=== PATIENT | female | born 1975 | race Caucasian/White ===

== ENCOUNTER → 2016-12-17 | Outpatient (CLI) | payer BC ==
[2016-12-17 07:43] LABS: Basophils # (A) 0.1 k/uL (0-0.2); Basophils % (A) 1 %; CH 30.2; Eosinophils # (A) 0.3 k/uL (0-0.7); Eosinophils % (A) 4 %; HCT 46.6 % (34.0-46.0); HDW 2.54; HGB 15.2 gm/dL (11.4-16.0); Luc # (Auto) 0.22; Luc % (Auto) 3; Lymphocytes # (A) 2.2 k/uL (1.0-4.8); Lymphocytes % (A) 26 %; MCH 29.1 pg (25.0-35.0); MCHC 32.6 g/dL (31.0-37.0); MCV 89.2 fL (80.0-100.0); Mean Platelet Volume 7.4; Monocytes # (A) 0.3 k/uL (0-1.0); Monocytes % (A) 3 %; Neutrophils # (A) 5.5 k/uL (1.3-7.7); Neutrophils % (A) 64 %; RBC 5.22 m/uL (3.80-5.40); RDW 12.9 % (11.5-15.5); WBC 8.5 k/uL (3.8-10.6); WBC (Perox) 8.33
[2016-12-17 07:52] LABS: ALT 27 U/L (9-52); AST 13 U/L (14-36); Alkaline Phosphatase 66 U/L (38-126); Anion Gap 11 mmol/L; Blood Urea Nitrogen 12 mg/dL (7-17); Carbon Dioxide 25 mmol/L (22-30); Chloride 107 mmol/L (98-107); Cholesterol 154 mg/dL (<200); Glucose 111 mg/dL (74-99); HDL Cholesterol 37 mg/dL (40-60); Non-African American GFR(MDRD) >60 (>60 ml/min/1.73 sqM); Potassium 4.1 mmol/L (3.5-5.1); Sodium 143 mmol/L (137-145); Total Bilirubin 0.9 mg/dL (0.2-1.3); Total Protein 7.2 g/dL (6.3-8.2); Triglycerides 86 mg/dL (<150)
== END | disposition home or self-care (01) ==
LOC: LABWHC1 07:18
PROVIDERS: ATTEND Family Medicine
DX: E03.8 Other specified hypothyroidism (principal); E66.9 Obesity, unspecified; Z68.30 Body mass index [BMI] 30.0-30.9, adult; Z77.21 Contact with and (suspected) exposure to potentially hazardous body fluids
CPT/HCPCS: 36415; 80053; 80061; 84439; 84443; 85025; 87535

== ENCOUNTER → 2016-12-31 | Outpatient (CLI) | payer BC ==
--- NOTE | 2017-01-01 12:44 | US ---
EXAMINATION TYPE: US thyroid st tissue head/neck DATE OF EXAM: 12/31/2016 4:10 PM COMPARISON: NONE CLINICAL HISTORY: E03.8 Hypothyroidism,E04.1 Thyroid nodule. GLAND SIZE: Right Lobe: 4.6 x 1.0 x 1.1 cm Left Lobe: 4.4 x 1.7 x 1.2 cm Isthmus Thickness: 0.4 cm NODULES RIGHT: # of nodules measured on right: 1 1. 1.4 X 1.3 x 1.3 cm isoechoic solid nodule at the lower pole with well-defined margins. This nod ule is wider than tall and shows intranodular vascularity. Prior size: no previous LEFT: # of nodules measured on left: 0 ISTHMUS: # of nodules measured in the isthmus: 0 Bilateral neck scanned, no evidence of lymphadenopathy. Diffusely heterogeneous bilateral thyroid tis tim. Nodule on the right is probably in the thyroid, but this is difficult to say with 100% certaint y. IMPRESSION: Diffuse glandular heterogeneity. Solid nonspecific exophytic nodule likely arising from the lower [place]elaide e of the right thyroid lobe. The need to Biopsy should be made on a clinical basis.
== END | disposition home or self-care (01) ==
LOC: RADUSWWP 15:45
PROVIDERS: ATTEND Family Medicine
DX: E04.1 Nontoxic single thyroid nodule (principal); E07.89 Other specified disorders of thyroid; E03.8 Other specified hypothyroidism; E06.3 Autoimmune thyroiditis
CPT/HCPCS: 76536

== ENCOUNTER → 2017-03-06 | Outpatient (CLI) | payer BC | END | disposition home or self-care (01) | LOC: LABWHC1 07:43 | PROVIDERS: ATTEND Internal Medicine Endocrinology, Diabetes & Metabolism | DX: E04.1 Nontoxic single thyroid nodule (principal) | CPT/HCPCS: 36415; 84439; 84443 ==

== ENCOUNTER → 2018-02-16 | Outpatient (CLI) | payer BC | LOC: LABWHC1 16:29 | PROVIDERS: ATTEND Internal Medicine Endocrinology, Diabetes & Metabolism | DX: E04.1 Nontoxic single thyroid nodule (principal) | CPT/HCPCS: 36415; 84443 ==

== ENCOUNTER → 2018-05-22 | Outpatient (CLI) | payer BC ==
--- NOTE | 2018-05-26 12:20 | MM ---
Reason for exam: screening (asymptomatic). Last mammogram was performed 2 years and 1 month ago. History: Family history of breast cancer in mother at age 48. Benign left breast aspiration of the left breast, August 26, 2012. Benign left breast aspiration additional of the left breast, August 26, 2012. Benign right US cyst aspiration ea add of the right breast, February 06, 2011. Benign right US cyst aspiration of the right breast, February 06, 2011. Took hormonal contraceptives for 10 years beginning at age 24. Physical Findings: A clinical breast exam by your physician is recommended on an annual basis and results should be correlated with mammographic findings. MG 3D Screening Mammo W/Cad Bilateral CC and MLO view(s) were taken. Prior study comparison: April 10, 2016, bilateral MG 3d screening mammo w/cad. March 17, 2015, bilateral MG diagnostic mammo w CAD [facility]. The breast tissue is heterogeneously dense. This may lower the sensitivity of mammography. Finding #1: There is a higher probability of malignancy 11 mm equal density (isodense), round mass located 10 cm from the nipple in the upper outer quadrant, middle position. Finding #2: There are diffuse/scattered calcifications in both breasts. There are some increased groups from 2015. New finding since April 10, 2016 and March 17, 2015. ASSESSMENT: Incomplete: need additional imaging evaluation, BI-RAD 0 RECOMMENDATION: Special view mammogram of both breasts. [facility] will attempt to contact patient to return for supplemental views.
== END | disposition home or self-care (01) ==
LOC: RADMAMWWP 06:57
PROVIDERS: ATTEND Obstetrics & Gynecology
DX: Z12.31 Encounter for screening mammogram for malignant neoplasm of breast (principal); Z80.3 Family history of malignant neoplasm of breast
CPT/HCPCS: 77063; 77067

== ENCOUNTER → 2018-05-28 | Outpatient (CLI) | payer BC ==
--- NOTE | 2018-06-01 08:51 | MM ---
Reason for exam: additional evaluation requested from abnormal screening. Last mammogram was performed less than 1 month ago. History: Family history of breast cancer in mother at age 48. Benign left breast aspiration of the left breast, August 26, 2012. Benign left breast aspiration additional of the left breast, August 26, 2012. Benign right US cyst aspiration ea add of the right breast, February 06, 2011. Benign right US cyst aspiration of the right breast, February 06, 2011. Took hormonal contraceptives for 10 years beginning at age 24. Physical Findings: Nurse did not find any significant physical abnormalities on exam. MG 3D Work Up W/Cad AM[facility] Bilateral LM view(s) were taken. Spot compression CC and spot compression MLO view(s) were taken of the right breast. CC with magnification and LM with magnification view(s) were taken of the left breast. Prior study comparison: May 22, 2018, bilateral MG 3d screening mammo w/cad. April 10, 2016, bilateral MG 3d screening mammo w/cad. Finding: There are typically benign vascular calcifications in the left breast. No significant changes in finding. These results were verbally communicated with the patient and result sheet given to the patient on 05/28/18. ASSESSMENT: Probably benign, BI-RAD 3 RECOMMENDATION: Follow-up diagnostic mammogram of the left breast in 6 months.
--- NOTE | 2018-06-01 08:54 | USB ---
Reason for exam: additional evaluation requested from abnormal screening. History: Family history of breast cancer in mother at age 48. Benign left breast aspiration of the left breast, August 26, 2012. Benign left breast aspiration additional of the left breast, August 26, 2012. Benign right US cyst aspiration ea add of the right breast, February 06, 2011. Benign right US cyst aspiration of the right breast, February 06, 2011. Took hormonal contraceptives for 10 years beginning at age 24. US Breast Workup Limited RT Right limited breast ultrasound including focal area of concern, retroareolar and axilla demonstrates four oval, cystic lesions measuring 1.0 x 0.9 x 1.1cm at 9 o'clock, 0.6 x 0.5 x 0.6cm at 9 o'clock, 1.7 x 0.7 x 1.3cm at 10 o'clock and 0.8 x 0.6 x 1.0cm at 10 o'clock. These results were verbally communicated with the patient and result sheet given to the patient on 05/28/18. ASSESSMENT: Benign, BI-RAD 2 RECOMMENDATION: Follow-up diagnostic mammogram in 6 months. (left)
== END | disposition home or self-care (01) ==
LOC: RADMAMWWP 14:37
PROVIDERS: ATTEND Obstetrics & Gynecology
DX: R92.8 Other abnormal and inconclusive findings on diagnostic imaging of breast (principal)
CPT/HCPCS: 77062; 77066

== ENCOUNTER → 2018-08-06 | Outpatient (CLI) | payer BC ==
--- NOTE | 2018-08-06 17:21 | US ---
EXAMINATION TYPE: US thyroid st tissue head/neck DATE OF EXAM: 08/06/2018 COMPARISON: US 12/31/2016 CLINICAL HISTORY: E04.1 Nontoxic single thyroid nodule. GLAND SIZE: Right Lobe: 5.1 x 1.1 x 1.2 cm Overall Parenchyma: heterogenous Left Lobe: 5.1 x 1.4 x 1.2 cm Overall Parenchyma: heterogeneous Isthmus Thickness: 0.3 cm NODULES RIGHT: # of nodules measured on right: 1 1. 1.7 X 1.4 x 1.6 cm echogenic solid nodule at the lower pole with well-defined margins; . This n odule is wider than tall and shows intranodular vascularity. Prior size: 1.4 x 1.3 x 1.3 cm LEFT: # of nodules measured on left: 0 ISTHMUS: # of nodules measured in the isthmus: 0 Bilateral diffusely heterogeneous thyroid lobes. Bilateral neck scanned, no evidence of lymphadenopat hy. IMPRESSION: 1. Right lobe thyroid nodule has increased in size from the comparison study 12/31/2016.
== END | disposition home or self-care (01) ==
LOC: RADUSWWP 15:55
PROVIDERS: ATTEND Internal Medicine Endocrinology, Diabetes & Metabolism
DX: E04.1 Nontoxic single thyroid nodule (principal)
CPT/HCPCS: 76536

== ENCOUNTER → 2018-08-12 | Outpatient (CLI) | payer BC ==
[2018-08-12 08:05] LABS: HCT 43.9 % (34.0-46.0); HGB 14.9 gm/dL (11.4-16.0); MCV 88.3 fL (80.0-100.0); Mean Platelet Volume 6.9; Platelet Count 398 k/uL (150-450); RBC 4.97 m/uL (3.80-5.40); RDW 13.1 % (11.5-15.5); WBC 8.9 k/uL (3.8-10.6)
[2018-08-12 08:24] LABS: Appearance,Urine Cloudy (Clear); Bacteria,Urine Rare /hpf; Bilirubin,Urine Negative (Negative); Blood,Urine Negative (Negative); Color,Urine Yellow; Glucose,Urine (UA) Negative (Negative); Ketones,Urine Negative (Negative); Leukocyte Esterase,Urine Large (Negative); Mucus,Urine Many /hpf; Nitrite,Urine Negative (Negative); Protein,Urine Trace (Negative); RBC,Urine 1 /hpf (0-5); Specific Gravity,Urine 1.025 (1.001-1.035); Squamous Epithelial Cell,Urine 14 /hpf (0-4); WBC,Urine 9 /hpf (0-5)
[2018-08-12 17:58] LABS: Albumin 4.1 g/dL (3.80-4.90); Albumin/Globulin Ratio 1.71 (1.20-2.10); Anion Gap 8.5 mmol/L (4.00-12.00); Calcium 9.1 mg/dL (8.7-10.3); Carbon Dioxide 23.5 mmol/L (21.6-31.8); Globulin 2.4 g/dL (2.1-3.7); LDL Cholesterol,Calculated 96.2 mg/dL (0.0-131.0); Potassium 4.4 mmol/L (3.5-5.5); Total Bilirubin 0.8 mg/dL (0.2-1.2); Total Protein 6.5 g/dL (6.2-8.2); VLDL Calculation 16.8 mg/dL (5.00-40.00)
[2018-08-12 18:07] LABS: T4, Free (Free Thyroxine) 1.4 ng/dL (0.80-1.80)
== END | disposition home or self-care (01) ==
LOC: LABWHC1 07:02
PROVIDERS: ATTEND Family Medicine
DX: Z00.00 Encounter for general adult medical examination without abnormal findings (principal); E06.3 Autoimmune thyroiditis
CPT/HCPCS: 36415; 80053; 80061; 81001; 84439; 84443; 84481; 85027

== ENCOUNTER → 2018-11-26 | Outpatient (CLI) | payer BC ==
--- NOTE | 2018-11-26 10:43 | MM ---
Reason for exam: follow-up at short interval from prior study. Last mammogram was performed 6 months ago. History: Family history of breast cancer in mother at age 48. Benign left breast aspiration of the left breast, August 26, 2012. Benign left breast aspiration additional of the left breast, August 26, 2012. Benign right US cyst aspiration ea add of the right breast, February 06, 2011. Benign right US cyst aspiration of the right breast, February 06, 2011. Took hormonal contraceptives for 10 years beginning at age 24. Physical Findings: Nurse did not find any significant physical abnormalities on exam. MG 3D Diag Mammo W/Cad LT CC, MLO, and XCCL view(s) were taken of the left breast. Prior study comparison: May 28, 2018, bilateral MG 3d work up w/cad AMARILIS. May 22, 2018, bilateral MG 3d screening mammo w/cad. The breast tissue is heterogeneously dense. This may lower the sensitivity of mammography. Lateral nodularity appears more defined from older prior. Punctate calcifications unchanged. A nodule measures 1.8cm and 1.3cm. A third nodule may be present. These results were verbally communicated with the patient and result sheet given to the patient on 11/26/18. ASSESSMENT: Incomplete: need additional imaging evaluation, BI-RAD 0 RECOMMENDATION: Ultrasound of the left breast. (lateral)
--- NOTE | 2018-11-26 10:57 | USB ---
Reason for exam: additional evaluation requested from abnormal screening. History: Family history of breast cancer in mother at age 48. Benign left breast aspiration of the left breast, August 26, 2012. Benign left breast aspiration additional of the left breast, August 26, 2012. Benign right US cyst aspiration ea add of the right breast, February 06, 2011. Benign right US cyst aspiration of the right breast, February 06, 2011. Took hormonal contraceptives for 10 years beginning at age 24. US Breast Limited LT Left limited breast ultrasound including focal area of concern, retroareolar and axilla demonstrates a 0.7 x 0.9 x 0.5cm oval, cystic cluster at 1 o'clock versus complex cyst for which a 6 month follow up is recommended, a 0.4 x 0.4 x 0.3cm oval, cystic lesion at 1 o'clock, a 0.4 x 0.5 x 0.3cm oval, cystic lesion at 1 o'clock, a 0.6 x 1.1 x 0.3cm oval, cystic lesion at 2 o'clock, a 1.0 x 0.5 x 0.5cm oval, cystic lesion at 2 o'clock, a 1.2 x 0.8 x 0.4cm oval, cystic lesion at 4 o'clock, a 1.1 x 0.8 x 0.7cm cystic lesion at 4 o'clock and duct ectasia at the posterior nipple. Scanned 12-6 o'clock. The 2 o'clock and 4 o'clock cysts may correspond to the mammographic findings. These results were verbally communicated with the patient and result sheet given to the patient on 11/26/18. ASSESSMENT: Probably benign, BI-RAD 3 RECOMMENDATION: Follow-up diagnostic mammogram of both breasts in 6 months. Ultrasound of the left breast in 6 months.
== END | disposition home or self-care (01) ==
LOC: RADMAMWWP 06:49
PROVIDERS: ATTEND Surgery
DX: R92.8 Other abnormal and inconclusive findings on diagnostic imaging of breast (principal)
CPT/HCPCS: 77061; 77065

== ENCOUNTER → 2019-05-18 | Outpatient (CLI) | payer BC ==
--- NOTE | 2019-05-18 11:52 | MM ---
Reason for exam: follow-up at short interval from prior study. Last mammogram was performed 6 months ago. History: Family history of breast cancer in mother at age 48. Benign left breast aspiration of the left breast, August 26, 2012. Benign left breast aspiration additional of the left breast, August 26, 2012. Benign right US cyst aspiration ea add of the right breast, February 06, 2011. Benign right US cyst aspiration of the right breast, February 06, 2011. Took hormonal contraceptives for 10 years beginning at age 24. Physical Findings: Nurse did not find any significant physical abnormalities on exam. MG 3D Diag Mammo W/Cad AMARILIS Bilateral CC and MLO view(s) were taken. Prior study comparison: November 26, 2018, left breast MG 3d diag mammo w/cad LT. May 28, 2018, bilateral MG 3d work up w/cad AMARILIS. The breast tissue is heterogeneously dense. This may lower the sensitivity of mammography. There are benign appearing round oval circumscribed bilateral masses waxing and waning over time most mammographically compatible with cysts. Benign appearing bilateral calcifications. These results were verbally communicated with the patient and result sheet given to the patient on 05/18/19. ASSESSMENT: Benign, BI-RAD 2 RECOMMENDATION: Routine screening mammogram of both breasts in 1 year.
--- NOTE | 2019-05-18 11:58 | USB ---
Reason for exam: follow-up at short interval from prior study. History: Family history of breast cancer in mother at age 48. Benign left breast aspiration of the left breast, August 26, 2012. Benign left breast aspiration additional of the left breast, August 26, 2012. Benign right US cyst aspiration ea add of the right breast, February 06, 2011. Benign right US cyst aspiration of the right breast, February 06, 2011. Took hormonal contraceptives for 10 years beginning at age 24. US Breast Limited LT Left limited breast ultrasound including focal area of concern, retroareolar and axilla demonstrates duct ectasia at 1 o'clock, a 0.5 x 0.4 x 0.3cm oval, lobular, complex cystic lesion at 1 o'clock appears as benign cyst, a 0.4 x 0.5 x 0.4cm oval, cystic lesion at 1 o'clock, appears as benign cyst, a 0.7 x 0.9 x 0.5cm oval, cystic cluster at 2 o'clock, appears as benign cyst, a 1.5 x 1.2 x 0.7cm oval, cystic larger of two lesions at 3 o'clock palpable, appears as benign cyst, ductal ectasia at 3 o'clock, a 0.6 x 0.6 x 0.5c, cystic lesion at 4 o'clock, a 0.4 x 0.4 x 0.3cm cystic lesion at 5 o'clock, ductal ectasia at the posterior nipple and a 1.1 x 0.7 x 0.5cm axilla node. These results were verbally communicated with the patient and result sheet given to the patient on 05/18/19. ASSESSMENT: Benign, BI-RAD 2 RECOMMENDATION: Aspiration of the left breast. (Aspiration could be considered for the painful palpable left cyst at 3 o'clock if the patient desires). Called with mammographic findings and has scheduled an appointment for the patient for 05/20/19 at 1:[address] Medina. PRELIMINARY REPORT CALLED AND FAXED TO DR. MEDINA ON 05/18/19. Routine screening mammogram of both breasts in 1 year.
== END | disposition home or self-care (01) ==
LOC: RADMAMWWP 09:15
PROVIDERS: ATTEND Surgery
DX: R92.8 Other abnormal and inconclusive findings on diagnostic imaging of breast (principal)
CPT/HCPCS: 77062; 77066